=== PATIENT | female | born 1960 | race Caucasian/White ===

== ENCOUNTER 2019-12-11 12:52 | Emergency (ER) | payer SELFPAY ==
[~2019-12-11 12:52] MED LIST: Iopamidol 370 76% 100 ML VIAL ONE
[2019-12-11] MEDS ORDERED: Lidocaine Viscous Sol 2% 15 ml UD Cup ONE (13:23)
[2019-12-11] MEDS ORDERED: Mag-Al Plus 1200 MG/1200 MG/120 MG/30 ML UDCUP ONE (13:23)
[2019-12-11 13:42] LABS: Hemoglobin 15.2 g/dL (12.0-16.0); Mean Corpuscular HGB CONC 28.9 g/dL (32.0-36.0); Mean Corpuscular Hemoglobin 24.2 pg (27.0-31.0); Mean Corpuscular Volume 83.7 fL (78.0-98.0); Mean Platelet Volume 11.3 fL (7.4-10.4); Platelet Count 275 thou/uL (130-400); RBC Distribution Width 16.2 % (11.5-14.5)
[2019-12-11 13:56] LABS: ALT (SGPT) 13 U/L (8-55); AST (SGOT) 14 U/L (5-34); Alkaline Phosphatase 85 U/L (40-110); Anion Gap 18 mmol/L (10-20); BUN (Urea Nitrogen) 9 mg/dL (9.8-20.1); Bilirubin, Total 0.8 mg/dL (0.2-1.2); Calc. Creatinine Clearance 0 mL/min (70-130); Calcium 9.5 mg/dL (7.8-10.44); Carbon Dioxide 22 mmol/L (22-29); Chloride 100 mmol/L (98-107); Estimated GFR-MDRD 70; Globulin 3.6 g/dL (2.4-3.5); Glucose 117 mg/dL (70-105); Lipase 9 U/L (8-78); Potassium 4.2 mmol/L (3.5-5.1); Protein, Total 7.6 g/dL (6.0-8.3); Sodium 136 mmol/L (136-145)
[2019-12-11 14:03] LABS: Band 2 % (5-11); Eosinophils 20 % (0-10); Hypochromia SLIGHT = 6-15 cells (100X) (0-5/hpf); Large Platelets SLIGHT; Lymphocytes 18 % (21-51); MDiff Complete? YES; Monocytes 4 % (0-10); Neutrophil 55 % (42-75)
--- NOTE | 2019-12-11 16:59 | CT ---
CT ABDOMEN AND PELVIS WITH CONTRAST: Comparison: None History: Upper abdominal pain and bloating for one week. Technique: Multiple contiguous axial images were obtained in a CT of the abdomen and pelvis with IV c ontrast. Sagittal and coronal reformats were performed. FINDINGS: There is a large mass emanating from the pelvis, appearing to emanate from the left ovary. This mass has multiple septations and contains microscopic fat and calcifications. This mass measures approxima tely 26.5 x 14.0 x 21.8 cm in size. The uterus contains a 2.5 cm lesion along the right aspect which may represent a small thyroid. There is a cyst/follicle in the right ovary which is separate from the mass measuring 2.9 cm in greatest dimension. Gallstones are seen in the gallbladder. The patient has a horseshoe kidney. The liver, adrenal glands , spleen, and pancreas are unremarkable. There are distended loops of proximal small bowel. There is a small bowel feces sign and transition o f these distended small bowel loops to more depressed distal small bowel loops in the right abdomen. The colon is unremarkable. No abdominal or pelvic lymphadenopathy are seen. Degenerative changes are seen in the spine. Visualiz ed inferior thorax and abdominal wall soft tissues are unremarkable. IMPRESSION: 1. Large pelvic mass, mostly represents a mature cystic teratoma emanating from the left ovary. 2. There appears to be a small bowel obstruction with the transition point in the right abdomen. This may be a partial small bowel obstruction and could be secondary to an adhesion or secondary to compr essive affect from the large pelvic mass. 3. Cholelithiasis. 4. Horseshoe kidney. 5. Small uterine fibroid. POS: [facility]
== END 2019-12-11 15:20 | disposition short-term general hospital (02) ==
LOC: NAV ERS 12:52
DX: K56.609 Unspecified intestinal obstruction, unspecified as to partial versus complete obstruction (principal); N83.202 Unspecified ovarian cyst, left side; R19.00 Intra-abdominal and pelvic swelling, mass and lump, unspecified site; K27.9 Peptic ulcer, site unspecified, unspecified as acute or chronic, without hemorrhage or perforation
CPT/HCPCS: 74177; 80053; 83605; 83690; 84484; 85025; 93005; 96360; 96361; Q9967